=== PATIENT | male | born 1985 | race Caucasian/White ===

== ENCOUNTER → 2020-06-30 | Emergency (ER) | payer SELFPAY ==
[~2020-06-30] VITALS: Ht 182.9 cm; Wt 88.5 kg
[~2020-06-30] MED LIST: CEFTRIAXONE 1GM BAG (ER ONLY) 50 ML IV ONE; CEPH250C PO; LIDOCAINE HCL/MPF 1% 30 ML VIAL IJ ONE; LIDOCAINE HCL/PF 1% 30 ML VIAL TP ONE; TDAP [DIPH/PERTUSSIS/TET] 0.5 ML VIAL IM ONE
--- NOTE | 2020-06-30 13:10 | NUR ---
The patient BIB due to left index lac from using table saw. The patient rates pain 2/10. In room air and denies SOB. Respiration regular and unlabored. The patient being seen by Dr Vasquez. Will continue to monitor.
[2020-06-30] MEDS: TDAP [DIPH/PERTUSSIS/TET] 0.5 ML VIAL IM ONE ×2 (13:19→13:33)
[2020-06-30] MEDS: CEFTRIAXONE 1GM BAG (ER ONLY) 1 GM/50 ML PIGGYBACK IV ONE ×2 (13:24→13:30)
--- NOTE | 2020-06-30 13:33 | NUR ---
The patient refused ordered Tdap/Boostrix/Adacel despite agreening initially. Right before administration the patient refused and the medication is discarded. Dr Vasquez is made aware.
--- NOTE | 2020-06-30 13:58 | NUR ---
Patient discharged to home in stable condition. Written and verbal after care instructions given. Patient verbalizes understanding of instruction. The patient left the hospital in stable conditon
[2020-06-30 14:01] VITALS: BP 141/75
== END | disposition home or self-care (01) ==
LOC: ER 13:07
DX: S62.631A Displaced fracture of distal phalanx of left index finger, initial encounter for closed fracture (principal); Z88.6 Allergy status to analgesic agent; W26.8XXA Contact with other sharp object(s), not elsewhere classified, initial encounter; Y93.89 Activity, other specified; Y92.89 Other specified places as the place of occurrence of the external cause; Y99.8 Other external cause status
CPT/HCPCS: 29130; 73140; 96365; 99284; J0696; J3490 ×2; 90715; A6403